=== PATIENT | female | born 1995 | race Caucasian/White ===

== ENCOUNTER 2019-04-09 17:06 | Emergency (ER) | payer MEDICAID ==
[~2019-04-09] VITALS: Ht 170.2 cm; Wt 64.1 kg
[2019-04-09 17:28] VITALS: BP 105/62; Ht 170.2 cm; Wt 64.1 kg
[2019-04-09] MEDS ORDERED: PRENAVITE1 TAB PO (17:30)
[2019-04-09 18:13] LABS: APPEARANCE CLEAR (CLEAR); BILIRUBIN NEGATIVE (NEGATIVE); COLOR YELLOW (YELLOW); GLUCOSE NEGATIVE (NEGATIVE); KETONE NEGATIVE (NEGATIVE); NITRITE NEGATIVE (NEGATIVE); PROTEIN NEGATIVE (NEGATIVE); RED CELLS - URINE 0-5 /hpf (0-5); SPECIFIC GRAVITY 1.015 (1.005-1.020); UROBILINOGEN NORMAL (NORMAL)
[2019-04-09 18:14] LABS: BACTERIA MANY /hpf (NONE SEEN)
[2019-04-09] MEDS ORDERED: KEFLEX500 MG PO (18:35)
== END 2019-04-09 18:40 | disposition home or self-care (01) ==
LOC: D.ER 17:06
PROVIDERS: Family Medicine
DX: O23.42 Unspecified infection of urinary tract in pregnancy, second trimester (principal)